=== PATIENT | male | born 1965 | race Caucasian/White ===

== ENCOUNTER 2020-07-19 20:05 | Emergency (ER) | payer BC, OTHER ==
[2020-07-19 20:10] VITALS: BP 134/86; PULSE 82; TEMP 97.8; BMI 24.3
--- NOTE | 2020-07-19 20:14 | PDOC ---
History of Present Illness - General Chief Complaint: Injury Stated Complaint: LEFT 5TH FINGER INJURY Time Seen by Provider: 07/19/20 20:13 History Source: Patient Exam Limitations: No Limitations - History of Present Illness Initial Comments: 07/19/20 20:31 55 yo M p/w L fifth digit injury sustained shortly before arrival. Was playing softball and someone hit the ball and it hit his L hand. States he was wearing a glove at the time and immediately took it off and saw his finger was deformed. He pulled on it and it went back into place but states the distal end of his finger still seems "loose." Denies any other injuries. Denies numbness or weakness in digits. Currently denies pain in the digit. Past History - Medical History Allergies/Adverse Reactions: Allergies Allergy/AdvReac Type Severity Reaction Status Date / Time No Known Allergies Allergy Verified 07/19/20 20:07 Home Medications: Ambulatory Orders NK [No Known Home Medication] 07/19/20 CVA: No COPD: No Other medical history: DENIES - Psycho-Social/Smoking History Smoking History: Never smoked Have you smoked in the past 12 months: No Information on smoking cessation initiated: No - Substance Abuse Hx (Audit-C & DAST Scrn) How often the patient has a drink containing alcohol: Monthly or less Score: In Men: 4 or > Positive; In Women: 3 or > Positive: 1 Screen Result (Pos requires Nsg. Audit-10AR): Negative In the last yr the pt used illegal drug/Rx for NonMed reason: No Score: Yes response is considered Positive: 0 Screen Result (Positive result requires Nsg. DAST-10): Negative Review of Systems - Review of Systems Able to Perform ROS?: Yes Comments:: 07/19/20 20:33 GENERAL/CONSTITUTIONAL: No fever or chills. No weakness. HEAD, EYES, EARS, NOSE AND THROAT: No change in vision. No ear pain or discharge. No sore throat. CARDIOVASCULAR: No chest pain or shortness of breath. RESPIRATORY: No cough, wheezing, or hemoptysis. GASTROINTESTINAL: No nausea, vomiting, diarrhea or constipation. GENITOURINARY: No dysuria, frequency, or change in urination. MUSCULOSKELETAL: As per HPI. No neck or back pain. SKIN: No rash. NEUROLOGIC: No headache, vertigo, loss of consciousness, or change in strength/sensation. ENDOCRINE: No increased thirst. No abnormal weight change. HEMATOLOGIC/LYMPHATIC: No anemia, easy bleeding, or history of blood clots. ALLERGIC/IMMUNOLOGIC: No hives or skin allergy. *Physical Exam - Vital Signs Last Vital Signs Temp Pulse Resp BP Pulse Ox 97.8 F 82 16 134/86 99 07/19/20 20:05 07/19/20 20:05 07/19/20 20:05 07/19/20 20:05 07/19/20 20:05 - Physical Exam 07/19/20 20:33 GENERAL: Well appearing, in no acute distress HEENT: NCAT, conjunctiva not injected, MMM, EOMI NECK: Normal ROM, supple LUNGS: CTAB. Good air entry. No wheezes, No Rhonchi and no crackles HEART: RRR, + s1 s2, no murmurs, rubs or gallops ABDOMEN: Soft, nontender, normoactive bowel sounds. No guarding, no rebound. No masses BACK: no midline or paraspinal tenderness. No CVA tenderness. EXTREMITIES: Warm and well perfused. No LE edema. FROM. No clubbing or cyanosis. Good cap refill. No finger or hand ttp. ?mild deformity at L 5th DIP joint with some laxity of joint NEUROLOGICAL: Aox3, Speech fluent, face symmetric, tongue/uvula midline. Sensation grossly intact to light touch. Ambulatory with steady gait. Strength intact. No focal deficits. SKIN: Warm, dry, normal turgor, no rashes or lesions noted. ED Treatment Course - RADIOLOGY Radiology Studies Ordered: Category Date Time Status HAND- LEFT [RAD] Stat Radiology 07/19/20 20:13 Ordered Medical Decision Making - Medical Decision Making 07/19/20 20:35 55 yo M with L 5th digit likely dislocation, reduced by patient prior to arrival however with ?laxity of L 5th DIP joint, possible fx vs. terminal tendon or lateral band injury. Plan: -xray hand -will splint hand and refer patient to hand for f/u, pt states he has a hand surgeon he has used in the past and would like to f/u with that surgeon -d/c with return precautions, recommend hand f/u This clinical encounter is taking place during a federal and state health care emergency attributable to the novel [place] Virus pandemic. The [employer] of the Department of Health and Human Services has declared, pursuant to the Public Health Service Act 319F-3 (42 U.S[place]C. 247d-6d), that a covered persons activities related to medical countermeasures against COVID-19 will be immune from liability under Federal and State law. Discharge - Discharge Information Problems reviewed: Yes Clinical Impression/Diagnosis: Finger dislocation Qualifiers: Encounter type: initial encounter Qualified Code(s): S63.259A - Unspecified dislocation of unspecified finger, initial encounter Condition: Stable Disposition: HOME - Admission No - Follow up/Referral - Patient Discharge Instructions Patient Printed Discharge Instructions: DI for Finger Dislocation Additional Instructions: You should follow up with your hand surgeon. Return to the ED for new or worsening symptoms. You can take tylenol or motrin at home as needed for pain. Print Language: CHADIAN - Post Discharge Activity
== END 2020-07-19 20:55 | disposition home or self-care (01) ==
LOC: FER 20:05
DX: S63.287A Dislocation of proximal interphalangeal joint of left little finger, initial encounter (principal)
CPT/HCPCS: 73130-TC-LT-FY; 99283-25